=== PATIENT | female | born 1970 | race Caucasian/White ===

== ENCOUNTER → 2018-11-04 13:48 | Outpatient (CLI) | payer OTHER, SELFPAY ==
--- NOTE | 2018-11-04 13:54 | DI.US.S_ITS ---
PROCEDURE: US PELVIC COMPLETE INDICATIONS: ENLARGED UTERUS TECHNIQUE: Real-time scanning was performed of the pelvic organs, with image documentation. Additional endovaginal scanning was necessary due to incomplete visualization of the adnexal and endometrial structures by transabdominal scanning. COMPARISON: None. FINDINGS: Transabdominal scanning: Limited scanning through the kidneys shows no hydronephrosis. No pathologic free abdominal or pelvic fluid. Endovaginal scanning: Uterus: Uterus is normal in size at 14.4 x 7.9 x 9.2 cm. The endometrium measures 8.1 mm in combined thickness. Multiple uterine fibroids are seen with the largest intramural fibroid measures 4.2 x 4.4 x 5.3 cm in size in midline posterior myometrium. Ovaries: Right ovary measures 3.8 x 2.1 x 1.8 cm in size. 6 mm calcification is noted in right ovary. Left ovary measures 2.6 x 1.4 x 2.4 cm in size and is within normal limits. IMPRESSION: 1. Multiple uterine fibroids as above. 2. No endometrial mass or fluid. 3. Right ovary calcification and may represent prior injury/infraction. No solid-appearing ovarian lesion. No evidence of ovary torsion. Dictated by: Pantera Nicholson M.D. on 11/04/2018 at 16:27 Approved by: Pantera Nicholson M.D. on 11/04/2018 at 16:30
--- NOTE | 2018-11-04 13:54 | DI.MG.S_ITS ---
BILATERAL DIGITAL SCREENING MAMMOGRAM 3D/2D WITH CAD: 11/04/2018 CLINICAL: Routine screening. Comparison is made to exams dated: 06/14/2017 mammogram, 09/24/2015 mammogram, and 11/17/2013 mammogram - [facility]. The tissue of both breasts is heterogeneously dense. This may lower the sensitivity of mammography. Current study was also evaluated with a Computer Aided Detection (CAD) system. No significant masses, calcifications, or other findings are seen in either breast. There has been no significant interval change. IMPRESSION: NEGATIVE There is no mammographic evidence of malignancy. A 1 year screening mammogram is recommended. This exam was interpreted at Station ID: [id number]. NOTE: For mammograms, a report in lay terms will be sent to the patient. Approximately 15% of breast malignancies will not be visualized mammographically. In the management of a palpable breast mass, a negative mammogram must not discourage biopsy of a clinically suspicious lesion. Electronically Signed By: Sandor redmond/genevieve:11/08/2018 11:46:44 letter sent: Normal Exam ACR BI-RADS Category 1: Negative 3341F
== END ==
DX: Z12.31 Encounter for screening mammogram for malignant neoplasm of breast (principal); N92.0 Excessive and frequent menstruation with regular cycle; N85.2 Hypertrophy of uterus; D25.1 Intramural leiomyoma of uterus; N83.8 Other noninflammatory disorders of ovary, fallopian tube and broad ligament
CPT/HCPCS: 76856; 77063; 77067

== ENCOUNTER → 2018-11-11 09:16 | Outpatient (CLI) | payer OTHER, SELFPAY ==
[2018-11-11 10:04] LABS: Hematocrit 41.5 % (36-46)
== END ==
DX: N92.0 Excessive and frequent menstruation with regular cycle (principal); R53.83 Other fatigue
CPT/HCPCS: 36415; 83001; 85014

== ENCOUNTER → 2021-01-04 09:38 | Outpatient (CLI) | payer OTHER, SELFPAY ==
[2021-01-04 10:28] LABS: Alanine Aminotransferase 24 IU/L (<35); Albumin 4.3 g/dL (3.5-5.0); Albumin Globulin Ratio 1.7 (1.0-2.8); Alkaline Phosphatase 62 U/L (38-126); Aspartate Aminotransferase 25 IU/L (14-36); Bilirubin Total 0.9 mg/dL (0.2-1.3); Blood Urea Nitrogen 12 mg/dL (7-17); Calcium 9.5 mg/dL (8.4-10.2); Carbon Dioxide 27 mmol/L (22-32); Chloride 107 mmol/L (98-107); Cholesterol 199 mg/dL (140-199); Estimated Glomerular Filt Rate > 60.0 mL/min (>60); Globulin 2.5 g/dL (1.7-4.1); Glucose 102 mg/dL (70-100); HDL Cholesterol 65 mg/dL (40-60); HEMOLYSIS < 15 (0-50); LDL Cholesterol Calculated 120 mg/dL (<100); Potassium 4.6 mmol/L (3.4-5.1); Sodium 141 mmol/L (137-145); Total Protein 6.8 g/dL (6.3-8.2); Triglycerides 68 mg/dL (35-150)
[2021-01-04 10:58] LABS: Thyroid Stimulating Hormone 0.748 uIU/mL (0.47-4.68)
== END ==
PROVIDERS: PCP Family Medicine; Referring Provider Family Medicine; Visit Provider Family Medicine
DX: Z13.220 Encounter for screening for lipoid disorders (principal); I10 Essential (primary) hypertension; R53.83 Other fatigue
CPT/HCPCS: 36415; 80053; 80061; 84443

== ENCOUNTER → 2021-10-23 09:09 | Outpatient (CLI) | payer OTHER, SELFPAY ==
[2021-10-23 10:33] LABS: COVID19 -Nasal RAPID Negative (Negative)
== END ==
PROVIDERS: PCP Family Medicine; Visit Provider Surgery
DX: Z01.812 Encounter for preprocedural laboratory examination (principal); Z20.822 Contact with and (suspected) exposure to COVID-19
CPT/HCPCS: 87635; C9803

== ENCOUNTER → 2021-10-23 09:40 | Outpatient (CLI) | payer OTHER, SELFPAY ==
--- NOTE | 2021-10-23 | DI.MG.S_ITS ---
BILATERAL DIGITAL SCREENING MAMMOGRAM 3D/2D WITH CAD: 10/23/2021 CLINICAL: Routine screening. Comparison is made to exams dated: 11/04/2018 mammogram, 06/14/2017 mammogram, 09/24/2015 ultrasound, and 09/24/2015 mammogram - [facility]. The tissue of both breasts is heterogeneously dense. This may lower the sensitivity of mammography. Current study was also evaluated with a Computer Aided Detection (CAD) system. No significant masses, calcifications, or other findings are seen in either breast. There has been no significant interval change. IMPRESSION: NEGATIVE There is no mammographic evidence of malignancy. A 1 year screening mammogram is recommended. This exam was interpreted at Station ID: [id number]. NOTE: For mammograms, a report in lay terms will be sent to the patient. Approximately 15% of breast malignancies will not be visualized mammographically. In the management of a palpable breast mass, a negative mammogram must not discourage biopsy of a clinically suspicious lesion. Electronically Signed By: Willie bennett/genevieve:10/23/2021 13:35:23 letter sent: Normal Exam ACR BI-RADS Category 1: Negative 3341F
== END ==
PROVIDERS: PCP Family Medicine; Referring Provider Family Medicine; Visit Provider Family Medicine
DX: Z12.31 Encounter for screening mammogram for malignant neoplasm of breast (principal)
CPT/HCPCS: 77063; 77067

== ENCOUNTER 2021-10-24 07:29 | Day surgery (SDC) | payer OTHER, SELFPAY ==
[2021-10-24 07:48] VITALS: BMI 28.3
[2021-10-24 07:55] VITALS: BP 142/93; PULSE 75; RESP 18; TEMP 37.1; O2SAT 97
[2021-10-24] MEDS: LACTATED RINGERS 1,000 ML 150 ML IV (08:03)
--- NOTE | 2021-10-24 08:16 | PM.HP.1 ---
History of Present Illness History of Present Illness Date Patient Seen: 10/24/21 Time Patient Seen: 08:16 Chief complaint: SCREENING COLONOSCOPY Narrative: First colonoscopy for colon cancer screening. No family history or symptoms. Patient History Medical History Fatigue Fibroids (~2018) Herpes (~1997) Hypertension Preventative health care Tobacco abuse counseling Surgical History Anesthesia H/O removal of cyst (~2018) History of oral surgery (~05/2019) History of surgery (~1994) Status post appendectomy (~1991) Status post tubal ligation Family & Social History Family History Father Diabetes mellitus Congestive heart failure Overweight History of heart disease Mother Diabetes mellitus Anemia Grandfather Dependency on alcohol Grandmother Cancer Grandfather No problems noted. Grandmother Diabetes mellitus Social History: household members spouse Tobacco & Substance use: Smoking Status Current every day smoker Smoking packs per day 0.5 alcohol intake current Substance Use Type does not use Meds Home Medications and Allergies Home Medications Medication Instructions Recorded Confirmed Type Multivitamins 1 tab PO DAILY 12/31/20 10/24/21 History valacyclovir 500 mg tablet See Rx Instructions .ROUTE 12/31/20 History .COMPLEX tablet Allergies Allergy/AdvReac Type Severity Reaction Status Date / Time bupropion [From Wellbutrin] Allergy Mild Hives Verified 10/24/21 07:45 latex Allergy Mild LOCAL RASH Verified 10/24/21 07:45 Penicillins Allergy Unknown Verified 10/24/21 07:45 Sulfa (Sulfonamide Allergy Unknown Verified 10/24/21 07:45 Antibiotics) contact metal agent AdvReac Unknown ITCHING Verified 10/24/21 07:45 Review of Systems Review of Systems ROS: Yes All systems reviewed with the patient and are negative except as otherwise documented Exam Vital Signs (past 8 hours): - 10/24/21 07:55 Temperature 98.7 F Pulse Rate 75 Respiratory Rate 18 Blood Pressure 142/93 H Pulse Oximetry 97 Oxygen Delivery Method Room Air Const General: cooperative and healthy appearing Nutritional Appearance: average body habitus HENMT Head: normal to inspection, normocephalic and atraumatic Eyes General: appearance normal, both eyes and all related structures Neck Neck: trachea midline Chest Chest: normal inspection of the chest Resp Effort & Inspection: normal respiratory effort and able to speak in complete sentences Cardio Rate: regular rate Rhythm: regular rhythm GI Inspection: normal to inspection Skin General: elasticity normal Neuro General: patient alert, patient awake and patient oriented x3 Extrem General: full ROM Psych Appearance: grossly normal Mental Status: mental status grossly normal Attitude: cooperative Judgment: judgment good Assessment & Plan Assessment & Plan narrative: Colon cancer screening with colonoscopy and moderate sedation COVID-19 COVID-19 status: Negative Time Spent With Patient Time with patient: less than 30 minutes Critical Care time: I spent a total of [] minutes of critical care time on this patient's care today; this time is exclusive of procedural time.
--- NOTE | 2021-10-24 08:29 | PM.OP.COLON ---
Operative Date/Time/Diagnoses Date of procedure: 10/24/21 Time of procedure: 08:29 Pre-op diagnosis: colon cancer screening Post-op diagnosis: same Procedure & Clinicians Study performed: colonoscopy with moderate sedation Same procedure as scheduled: Yes Indications: colon cancer screening Surgeon: Jany Haley Procedure Notes SCOAP/Timeout: Done Procedure in detail: Prep diagnosis: Colon cancer screening Postop diagnosis: Same Operative procedure: Colonoscopy with moderate sedation Surgeon: DEVIN Haley MD Anesthetic: Versed 4 mg fentanyl 75 mg Findings: Normal colonoscopy. Mild scant diverticuli in the sigmoid colon Procedure: Patient placed in lateral position. Rectal exam performed showing normal tone no masses. Colonoscope inserted into the rectum and advanced to the ileocecal valve with minimal difficulty. Insufflation extraction of scope had the above findings. Retroflex was included in the rectum. Impression: Normal colonoscopy. Mild scant diverticulosis. Plan: Repeat colonoscopy in 10 years unless otherwise indicated by change in family history or clinical condition Sedation minutes: 12 Findings: divertiulosis Post-procedure Recommendations: Colonoscopy in 10 years Follow up: as needed Disposition: PACU
[2021-10-24] MEDS: MIDAZOLAM 5 MG/5 ML VIAL 4 MG IV (08:33)
[2021-10-24] MEDS: fentaNYL 250 MCG/5 ML INJ 75 MCG IV (08:33)
[2021-10-24 08:52] VITALS: BP 131/73; PULSE 70; RESP 15; TEMP 36.4; O2SAT 97
[2021-10-24 08:56] VITALS: BP 120/76; PULSE 63; RESP 14; O2SAT 94
[2021-10-24 09:01] VITALS: BP 112/78; PULSE 63; RESP 14; O2SAT 94
[2021-10-24 09:07] VITALS: BP 124/75; PULSE 62; RESP 14; O2SAT 95
[2021-10-24 09:15] VITALS: BP 116/72; PULSE 84; RESP 16; TEMP 36.7; O2SAT 98
== END 2021-10-24 09:16 | disposition home or self-care (01) ==
PROVIDERS: PCP Family Medicine; Referring Provider Surgery; Visit Provider Surgery
PROC: 0DJD8ZZ Inspection of Lower Intestinal Tract, Via Natural or Artificial Opening Endoscopic (ICD-10-PCS; CPT 45378; principal; 2021-10-24 08:30)
DX: Z12.11 Encounter for screening for malignant neoplasm of colon (principal); F17.210 Nicotine dependence, cigarettes, uncomplicated; B00.9 Herpesviral infection, unspecified; K57.30 Diverticulosis of large intestine without perforation or abscess without bleeding
CPT/HCPCS: 45378; 99152; J2250; J3010

== ENCOUNTER → 2022-07-25 11:00 | Outpatient (CLI) | payer OTHER, SELFPAY ==
[2022-07-25 12:44] LABS: Add Manual Diff / Slide Review NO; Basophils Absolute Auto 100 /uL (0-100); Basophils Percent Auto 0.7 % (0-2); Eosinophils Absolute Auto 300 /uL (0-450); Eosinophils Percent Auto 3.5 % (2-4); Hematocrit 45.8 % (36-46); Hemoglobin 15.5 g/dL (12.0-16.0); Lymphocytes Absolute Auto 1600 /uL (1100-4500); Lymphocytes Percent Auto 21.2 % (25-40); Mean Corpuscular HGB Conc 33.7 % (30-36); Mean Corpuscular Hemoglobin 31.7 PG (26-34); Monocytes Absolute Auto 600 /uL (0-900); Monocytes Percent Auto 7.4 % (3-14); Neutrophils Absolute Auto 5100 /uL (1500-7000); Neutrophils Percent Auto 67.2 % (50-75); Platelet Count 232 X10^3/uL (150-400); Red Blood Cell Count 4.88 X10^6/uL (4.0-5.2); Red Cell Distribution Width 13.1 % (11.6-14.8); White Blood Cell Count 7.6 X10^3/uL (4.5-11.0)
[2022-07-25 13:55] LABS: Alanine Aminotransferase 34 IU/L (<35); Albumin 4.7 g/dL (3.5-5.0); Albumin Globulin Ratio 1.7 (1.0-2.8); Alkaline Phosphatase 84 U/L (38-126); Aspartate Aminotransferase 27 IU/L (14-36); BUN Creatinine Ratio 22.6 (6-22); Bilirubin Total 0.8 mg/dL (0.2-1.3); Blood Urea Nitrogen 14 mg/dL (7-17); Calcium 9.8 mg/dL (8.4-10.2); Carbon Dioxide 30 mmol/L (22-32); Chloride 101 mmol/L (98-107); Cholesterol 231 mg/dL (140-199); Estimated Glomerular Filt Rate > 60 mL/min (>60); Globulin 2.7 g/dL (1.7-4.1); Glucose 97 mg/dL (70-100); HDL Cholesterol 84 mg/dL (40-60); HEMOLYSIS < 15 (0-50); LDL Cholesterol Calculated 118 mg/dL (<100); Potassium 4.4 mmol/L (3.4-5.1); Sodium 139 mmol/L (137-145); Total Protein 7.4 g/dL (6.3-8.2); Triglycerides 145 mg/dL (35-150)
[2022-07-25 14:23] LABS: TSH w/ Reflex to FT4 1.02 uIU/mL (0.47-4.68)
== END ==
PROVIDERS: PCP Family Medicine; Referring Provider Family Medicine; Visit Provider Family Medicine
DX: Z00.00 Encounter for general adult medical examination without abnormal findings (principal); R63.5 Abnormal weight gain; Z13.29 Encounter for screening for other suspected endocrine disorder
CPT/HCPCS: 36415; 80053; 80061; 84443; 85025

== ENCOUNTER → 2022-09-16 10:39 | Outpatient (CLI) | payer OTHER, SELFPAY ==
--- NOTE | 2022-09-16 10:52 | DIET.OUTPTC ---
Dietary Outpatient Consultation Note Consultation Date: 09/16/[address] 52[address] visit for help with recent weight gain and ongoing HTN. Ht: 5'4 Wt: 173# Goal Weight: 145-150# (+30# since covid 2019) In menopause now, noticed weight gain since perimenopause. Having hot flashes. 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 Pt with acute stressors: daughter just moved home, pt travels to care for aging parents- travelling once per month-mom has dementia in [place], trying to get parents moved to [facility] this summer into mobile home. Parents are hoarders. Pt and siblings plan to clean out home and sell this summer. Food Recall: wakes 4:30-5am doesn't usually feel rested- wakes several times sweating or to use bathroom Coffee c Vital Collagen, MCT and sweet and low gets hungry at 10:30- almonds with [place] cheese eats lunch at 11am: spring mix with kalamata olives, sourkraut, beets, feta cheese, tuna packet or leftover chicken, organic ranch or redding avocado Sn: some chips 5pm starts making dinner: half breakfast sandwich from [employer], steamed broccoli or shrimp with corn dip with corn chips from [employer] ETOH: glass wine 3-4nights per week, fabiano now that going through stress Sometimes weekends snacking on corn chip and dip, slice cheese, popcorn Shops at [place] and [facility] When in [facility], walks every morning at 830am. Open to walking at lunch, doing some strength training but currently does not have the energy for exercise. Nutrition Dx: abnormal weight gain r/t metabolic changes in menopause and physical inactivity aeb pt +30# in 3y continuing to gain weight, pt has not had menses in 10mo, pt with acute family stressors with less time for self-care limiting physical activity. Interventions: 1. Introduced pt to Hunger Scale. Aim to eat at 3 and stop at 8. Avoid eating when 5. Pt to use scale to help with meal timing and portion control. 2. To support metabolism in menopause, pt to explore strength training 3x/w followed with 20g protein to support LBM. 3. Provided pt Cardiometabolic Food Plan. Pt to use food list to balance intake and include many bolded items. 4. Educated pt on role of sodium and HTN. Practiced label reading with pt with aim to limit sodium to 600-700mg per eating occasion. F/u via telehealth in 3w. Electronically Signed by: Ophelia Medrano 09/16/22 10:52 Clinical Dietitian [address] [address]
== END ==
PROVIDERS: Absent Provider Family Medicine; Family Provider Family Medicine; PCP Family Medicine; Referring Provider Family Medicine; Visit Provider Family Medicine
DX: E66.9 Obesity, unspecified (principal); I10 Essential (primary) hypertension; Z78.0 Asymptomatic menopausal state; Z71.3 Dietary counseling and surveillance
CPT/HCPCS: 97802

== ENCOUNTER → 2022-10-06 11:24 | Outpatient (CLI) | payer OTHER, SELFPAY ==
--- NOTE | 2022-10-06 12:06 | DIET.OUTPTC ---
Dietary Outpatient Consultation Note Consultation Date: 10/06/[address] 52[address] f/u for help with abnormal weight gain associated with menopause. Pt has been doing well x3w, eating more fruits and vegetables, started with daily walks, more in tune with her hunger and fullness. 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 Pt maintained her daily walk habit, however. Pt packs salads for lunch daily and is back in good habits this week. Made salad with scallops and broccoli for dinner last night. Interventions: 1. Discussed slips are normal, how to use them as an opportunity to learn about automatic behaviors and those behaviors that derail her progress. 2. Discussed checking in with energy levels throughout the day to see how her body responds to variety of meal volumes and composition. 3. Collaborated on eating plan for the month pt is in [facility] preparing her parents home for sale. Pt will batch cook a protein to eat over several days with siblings (ie. steak, chicken, pulled pork, salmon) which can be prepared in a variety of ways, quickly. Tacos, salads, etc. 4. Pt plans to start weight training. Will put weights in her living room so she uses them instead of snacks in the evening. F/u prn Electronically Signed by: Ophelia Medrano 10/06/22 12:06 Clinical Dietitian [address] [address]
== END ==
PROVIDERS: Family Provider Family Medicine; PCP Family Medicine; Referring Provider Family Medicine; Visit Provider Family Medicine
DX: R63.5 Abnormal weight gain (principal); Z78.0 Asymptomatic menopausal state; Z71.3 Dietary counseling and surveillance
CPT/HCPCS: 97803

== ENCOUNTER → 2023-08-16 16:45 | Outpatient (CLI) | payer OTHER, SELFPAY ==
--- NOTE | 2023-08-16 16:47 | DI.MG.S_ITS ---
BILATERAL DIGITAL SCREENING MAMMOGRAM 3D/2D WITH CAD: 08/16/2023 CLINICAL: Routine screening. Comparison is made to exams dated: 11/04/2018 mammogram, 10/23/2021 mammogram, and 06/14/2017 mammogram - [facility]. Both breasts are heterogeneously dense, which may obscure small masses (category c / 51-75% glandular tissue). Current study was also evaluated with a Computer Aided Detection (CAD) system. No significant masses, calcifications, or other findings are seen in either breast. There has been no significant interval change. IMPRESSION: NEGATIVE There is no mammographic evidence of malignancy. A 1 year screening mammogram is recommended. Based on the Tyrer Cuzick model (a risk assessment model) the patient's lifetime risk is 11.9% and her 10 year risk is 3.4%. According to the ACR, ACS, and NCCN guidelines, an annual breast MRI exam along with mammogram is recommended if the patient's lifetime risk is 20% or greater. This exam was interpreted at Station ID: [id number]. NOTE: For mammograms, a report in lay terms will be sent to the patient. Approximately 15% of breast malignancies will not be visualized mammographically. In the management of a palpable breast mass, a negative mammogram must not discourage biopsy of a clinically suspicious lesion. Electronically Signed By: Willie bennett/genevieve:08/17/2023 17:31:14 letter sent: Normal Exam ACR BI-RADS Category 1: Negative 3341F
== END ==
PROVIDERS: Family Provider Family Medicine; PCP Family Medicine; Referring Provider Family Medicine; Visit Provider Family Medicine
DX: Z12.31 Encounter for screening mammogram for malignant neoplasm of breast (principal); R92.333 Mammographic heterogeneous density, bilateral breasts
CPT/HCPCS: 77063; 77067

== ENCOUNTER → 2024-10-23 16:14 | Outpatient (CLI) | payer OTHER, SELFPAY ==
--- NOTE | 2024-10-23 16:15 | DI.MG.S_ITS ---
MM screening mammo BI: 10/23/2024. BI-RADS: 1 CLINICAL: 54-year old female for bilateral screening mammogram. Tyrer-Cuzick lifetime risk of 6.6%. No personal or first-degree family history of breast cancer. PRIOR EXAMS 08/16/2023, 10/23/2021, 11/04/2018, 06/14/2017, 09/24/2015. MAMMOGRAPHY TECHNIQUE: 2D and 3D (tomosynthesis) digital mammographic views obtained, with additional images as needed for full coverage. Current study was also evaluated with a Computer Aided Detection (CAD) system. DENSITY C. The breasts are heterogeneously dense, which may obscure small masses. MAMMOGRAPHY FINDINGS Bilateral: No suspicious mass, asymmetry, microcalcification, or other abnormality seen. No significant change from comparison. IMPRESSION: * No evidence of malignancy. RECOMMENDATIONS Bilateral * Annual screening mammography. OVERALL ASSESSMENT CATEGORY BI-RADS-1: Negative. The [employer] recommends annual screening mammography beginning at age 40 for women with average risk of breast cancer. ELECTRONICALLY SIGNED: Mikaela Nice M.D. on 10/24/2024 at 04:06:47 PM PT Interpreting Station ID: [id number]
== END ==
PROVIDERS: Family Provider Family Medicine; PCP Family Medicine; Referring Provider Family Medicine; Visit Provider Family Medicine
DX: Z12.31 Encounter for screening mammogram for malignant neoplasm of breast (principal); R92.333 Mammographic heterogeneous density, bilateral breasts
CPT/HCPCS: 77063; 77067